=== PATIENT | male | born 1960 | race Native Hawaiian/Other Pacific Islander ===

== ENCOUNTER 2019-03-24 10:12 | Emergency (ER) | payer SELFPAY ==
[~2019-03-24] VITALS: Ht 180.3 cm; Wt 68.2 kg
[2019-03-24 12:28] VITALS: BP 136/88
== END 2019-03-24 14:14 | disposition home or self-care (01) ==
LOC: EMS 10:15
DX: R45.1 Restlessness and agitation (principal); F20.9 Schizophrenia, unspecified